=== PATIENT | female | born 1970 | race Caucasian/White ===

== ENCOUNTER 2016-10-31 16:25 | Emergency (ER) | payer OTHER ==
[2016-10-31 17:14] VITALS: BP 137/76
[2016-10-31 18:04] LABS: Hematocrit 39 % (35-47); Hemoglobin 13.3 g/dl (12.0-16.0); Mean Corpuscular HGB Conc 34 g/dl (31-36); Mean Corpuscular Hemoglobin 29 pg (27-31); Mean Corpuscular Volume 86 fL (80-97); Mean Platelet Volume 9 um3 (7.4-10.4); Red Blood Count 4.56 10^6/ul (4.0-5.4); Red Cell Distribution Width 14 % (10.5-15)
[2016-10-31 18:20] LABS: BUN/Creatinine Ratio 18.8 (8-20); Calcium 9.6 mg/dL (8.6-10.3); EGFR African American 92.6 (>60); Globulin 2.9 g/dL (2-4); Potassium 3.9 mmol/L (3.5-5.0); Total Bilirubin 0.6 mg/dL (0.2-1.0); Total Protein 6.9 g/dL (6.4-8.9)
--- NOTE | 2016-10-31 18:35 | RAD ---
Indication: Chest pain. History of asthma and bronchitis. Comparison: July 12, 2015 CT. July 12, 2015 chest radiograph. Technique: Upright AP 1800 hours Report: Mildly elevated lung volumes. Mild prominence of interstitial markings without significant change. No alveolar consolidation, focal pulmonary lesion, pleural effusion, pneumothorax. The heart, pulmonary vasculature, and mediastinal contours are unremarkable. IMPRESSION: Stigmata of probable chronic obstructive pulmonary disease. No acute cardiopulmonary process evident.
--- NOTE | 2016-11-08 13:21 | ED ---
Melody Thornton Anna, scribed for Antwon Mills MD on 10/31/16 at 1749 . HPI Chest Pain - HPI Summary HPI Summary: Patient is a 46 y/o female presenting with left-sided chest pain that began at 15:00 this evening while she was sitting at her computer. The pain does not radiate. She additionally reports SOB, lightheadedness, and left shoulder pain. She denies chills, nausea, vomiting. She has had similar symptoms before. - History of Current Complaint Chief Complaint: EDChestPainROMI Time Seen by Provider: 10/31/16 17:43 Hx Obtained From: Patient Onset/Duration: Started Hours Ago Initial Severity: Moderate Current Severity: Moderate - Allergy/Home Medications Allergies/Adverse Reactions: Allergies Allergy/AdvReac Type Severity Reaction Status Date / Time Adhesive Tape Allergy RED Verified 07/06/16 09:06 Latex Allergy SWELLS, Verified 07/06/16 09:06 RED ITCHY SKIN Atorvastatin [From Lipitor] AdvReac Intermediate GI Upset Verified 07/06/16 09: 06 Sulfamethoxazole AdvReac Intermediate GI Upset Verified 07/06/16 09:06 w/Trimethoprim [From Bactrim] Clarithromycin [From Biaxin] AdvReac GI Upset Verified 07/06/16 09:06 Escitalopram [From Lexapro] AdvReac GI Upset Verified 07/06/16 09:06 HAYFEVER/ENVIRONMENTAL Allergy SNEEZING, Uncoded 07/06/16 09:06 RUNNY NOSE PMH/Surg Hx/FS Hx/Imm Hx Endocrine/Hematology History: Denies: Hx Diabetes Cardiovascular History: Reports: Hx Angina, Hx Hypertension - ON MEDICATION FOR Denies: Hx Pacemaker/ICD, Other Cardiovascular Problems/Disorders Respiratory History: Reports: Hx Asthma - ROUTINE AND PRN MEDICATION FOR Denies: Hx Pulmonary Embolism GI History: Reports: Hx Gastroesophageal Reflux Disease - NO MEDICATION FOR- NO PROBLEMS WITH CURRENTLY Denies: Other GI Disorders History: Denies: Hx Dialysis, Hx Renal Disease, Other Problems/Disorders Musculoskeletal History: Reports: Hx Bursitis - RIGHT SHOULDER, Hx Tendonitis - RIGHT ELBOW, Other Musculoskeletal History - RIGHT ANKLE SEVERE STRAIN WITH TORN LIGAMENT Sensory History: Reports: Hx Contacts or Glasses - GLASSES Denies: Hx Hearing Aid Opthamlomology History: Reports: Hx Contacts or Glasses - GLASSES Neurological History: Reports: Hx Headaches, Hx Migraine - PRN MEDICATION FOR Denies: Other Neuro Impairments/Disorders Psychiatric History: Reports: Hx Depression - ON MEDICATION FOR Denies: Hx Panic Disorder - Surgical History Surgery Procedure, Year, and Place: 1994 TUBAL LIGATION;GALLBLADDER 02/2013; [facility] right ankle Jun 2013 Hx Anesthesia Reactions: No - Immunization History Date of Tetanus Vaccine: unknown Infectious Disease History: No Infectious Disease History: Denies: History Other Infectious Disease, Traveled Outside the [place] in Last 30 Days - Family History Known Family History: Positive: Cardiac Disease, Hypertension, Diabetes, Other - HLD, depression - Social History Alcohol Use: Rare Substance Use Type: Reports: None Smoking Status (MU): Current Some Day Smoker Type: Cigarettes Amount Used/How Often: OFF AND ON SINCE AGE 9 Length of Time of Smoking/Using Tobacco: 25 YEARS Have You Smoked in the Last Year: Yes Review of Systems Positive: Chest Pain Positive: Shortness Of Breath Positive: Arthralgia Neurological: Other - lightheadedness All Other Systems Reviewed And Are Negative: Yes Physical Exam - Summary Physical Exam Summary: VITAL SIGNS: Reviewed. GENERAL: Patient is an obese female who is lying comfortable in the stretcher. Patient is not in any acute respiratory distress. HEAD AND FACE: No signs of trauma. No ecchymosis, hematomas or skull depressions. No sinus tenderness. EYES: PERRLA, EOMI x 2, No injected conjunctiva, no nystagmus. EARS: Hearing grossly intact. Ear canals and tympanic membranes are within normal limits. MOUTH: Oropharynx within normal limits. NECK: Supple, trachea is midline, no adenopathy, no JVD, no carotid bruit, no c- spine tenderness, neck with full ROM. CHEST: Symmetric, Positive reproduction of tenderness at palpation LUNGS: Clear to auscultation bilaterally. No wheezing or crackles. CVS: Regular rate and rhythm, S1 and S2 present, no murmurs or gallops appreciated. ABDOMEN: Soft, non-tender. No signs of distention. No rebound no guarding, and no masses palpated. Bowel sounds are normal. EXTREMITIES: FROM in all major joints, no edema, no cyanosis or clubbing. NEURO: Alert and oriented x 3. No acute neurological deficits. Speech is normal and follows commands. SKIN: Dry and warm Vital Signs On Initial Exam: Initial Vitals Temp Pulse Resp BP Pulse Ox 98.4 F 88 16 137/76 96 10/31/16 17:04 10/31/16 17:04 10/31/16 17:04 10/31/16 17:04 10/31/16 17:04 - Laurent Coma Scale Coma Scale Total: 15 Diagnostics - Vital Signs Vital Signs Temp Pulse Resp BP Pulse Ox 10/31/16 17:35 93 14 98 10/31/16 17:04 98.4 F 88 16 137/76 96 - Laboratory Lab Results: Lab Results 10/31/16 10/31/16 10/31/16 Range/Units 17:25 17:25 17:25 WBC 10.0 (3.5-10.8) 10^3/ul RBC 4.56 (4.0-5.4) 10^6/ul Hgb 13.3 (12.0-16.0) g/dl Hct 39 (35-47) % MCV 86 (80-97) fL MCH 29 (27-31) pg MCHC 34 (31-36) g/dl RDW 14 (10.5-15) % Plt Count 229 (150-450) 10^3/ul MPV 9 (7.4-10.4) um3 Neut % (Auto) 62.2 (38-83) % Lymph % (Auto) 27.3 (25-47) % [place] % (Auto) 6.6 (1-9) % Eos % (Auto) 2.8 (0-6) % Baso % (Auto) 1.1 (0-2) % Absolute Neuts (auto) 6.2 (1.5-7.7) 10^3/ul Absolute Lymphs (auto) 2.7 (1.0-4.8) 10^3/ul Absolute Monos (auto) 0.7 (0-0.8) 10^3/ul Absolute Eos (auto) 0.3 (0-0.6) 10^3/ul Absolute Basos (auto) 0.1 (0-0.2) 10^3/ul Absolute Nucleated RBC 0.01 10^3/ul Nucleated RBC % 0.1 Sodium 140 (133-145) mmol/L Potassium 3.9 (3.5-5.0) mmol/L Chloride 107 (101-111) mmol/L Carbon Dioxide 27 (22-32) mmol/L Anion Gap 6 (2-11) mmol/L BUN 16 (6-24) mg/dL Creatinine 0.85 (0.51-0.95) mg/dL Est GFR ( Amer) 92.6 (>60) Est GFR (Non-Af Amer) 72.0 (>60) BUN/Creatinine Ratio 18.8 (8-20) Glucose 106 H (70-100) mg/dL Lactic Acid 1.5 (0.5-2.0) mmol/L Calcium 9.6 (8.6-10.3) mg/dL Total Bilirubin 0.60 (0.2-1.0) mg/dL AST 20 (13-39) U/L ALT 25 (7-52) U/L Alkaline Phosphatase 67 (34-104) U/L CK-MB (CK-2) 3.0 (0.6-6.3) ng/mL Troponin I 0.00 (<0.04) ng/mL Total Protein 6.9 (6.4-8.9) g/dL Albumin 4.0 (3.2-5.2) g/dL Globulin 2.9 (2-4) g/dL Albumin/Globulin Ratio 1.4 (1-3) Result Diagrams: 10/31/16 17:25 10/31/16 17:25 Lab Statement: Any lab studies that have been ordered have been reviewed, and results considered in the medical decision making process. - Radiology CXR Xray Interpretation: No Acute Changes Radiology Interpretation Completed By: Radiologist - IMPRESSION: Stigmata of probable chronic obstructive pulmonary disease. No acute cardiopulmonary process evident. - EKG 18:49 Cardiac Rate: NL - 75 bpm EKG Rhythm: Sinus Rhythm EKG Interpretation: No S/T elevation Chest Pain Course/Dx - Course Assessment/Plan: Patient is a 46 y/o female presenting with left-sided chest pain that began at 15:00 this evening while she was sitting at her computer. The pain does not radiate. She additionally reports SOB, lightheadedness, and left shoulder pain. She denies chills, nausea, vomiting. She has had similar symptoms before. Test result wnl. Troponin is 0.00. EKG: NSR w/o MATEO. CXR impression with no acute cardiopulmonary disease. I have no suspicion for PE since patient denies any SOB, she is no hypoxic and she in not tachycardic. Patient reports that all symptoms have resolved. Because the patient has no significant comorbidities and no family history of cardiovascular disease the patient will be discharged home with follow up of PMD. I discussed all the findings and test results with the patient. Patient was instructed to return to the emergency room immediately if any of the symptoms return or worsens. Patient understands and agrees. Plan of care was discussed with the patient and patient understands and agrees. All questions were answered at patient satisfaction. There were no further complaints or concerns. PE before discharge : CVS: S1 and S2 present. No murmurs appreciated. Abdominal exam before discharge: Soft, non-tender. No signs of distention. No rebound no guarding, and no masses palpated. Bowel sounds are normal. Patient is alert and oriented x 3. Patient is hemodynamically stable. - Chest Pain Differential Diagnosis/HQI/PQRI: ACS, Angina, Chest Wall, GI Disease, Lower Respiratory Infection, Pulmonary Embolism - Diagnoses Provider Diagnoses: Atypical chest pain Discharge - Discharge Plan Condition: Stable Disposition: HOME Patient Education Materials: Chest Pain (ED) Referrals: Geovanna Alves MD [Primary Care Provider] - Additional Instructions: Follow up with primary care physician within 24 hours. Return to the emergency department for changing or worsening symptoms. The documentation as recorded by the Melody shen Anna accurately reflects the service I personally performed and the decisions made by me, Antwon Mills MD.
== END 2016-10-31 19:28 | disposition home or self-care (01) ==
LOC: ED 16:25
DX: R07.9 Chest pain, unspecified (principal); R06.02 Shortness of breath; R42 Dizziness and giddiness
CPT/HCPCS: 36415; 71010; 80053; 82553; 83605; 84484; 85025; 93005; 99283

== ENCOUNTER 2018-03-27 07:01 | Emergency (ER) | payer OTHER ==
[2018-03-27 07:18] VITALS: BP 137/85
--- NOTE | 2018-03-27 08:08 | UC ---
Amy Thornton Tenzin, scribed for Rafaela Roach MD on 03/27/18 at 0732 . General HPI - HPI Summary HPI Summary: Pt is a 47 years old female presenting to the complaining of sore throat that started since yesterday. Pt is also complaining of "white spots" on the back of throat and "stuff draining down the throat". Denies fever, chills, nausea, no ear or sinus pain. Her mother has sore throat currently.No aggravating and alleviating factors were noted. No anlagesia taken. She doesn' t smoke and drinks twice a year. LNMP few weeks ago. Pt does not take meds as prescribed for htn, dm pt's on no meds - History of Current Complaint Chief Complaint: UCGeneralIllness Stated Complaint: SORE THROAT Hx Obtained From: Patient Hx Last Menstrual Period: 03/14/18 Onset/Duration: Still Present Pain Intensity: 7 Associated Signs & Symptoms: Positive: Other - Sore throat. - Allergy/Home Medications Allergies/Adverse Reactions: Allergies Allergy/AdvReac Type Severity Reaction Status Date / Time Adhesive Tape Allergy RED Verified 03/27/18 07:09 latex Allergy Rash Verified 03/27/18 07:45 atorvastatin AdvReac GI Upset Verified 03/27/18 07:45 clarithromycin [From Biaxin] AdvReac GI Upset Verified 03/27/18 07:45 escitalopram [From Lexapro] AdvReac GI Upset Verified 03/27/18 07:45 sulfamethoxazole AdvReac GI Upset Verified 03/27/18 07:45 [From Bactrim] trimethoprim [From Bactrim] AdvReac GI Upset Verified 03/27/18 07:45 HAYFEVER/ENVIRONMENTAL Allergy SNEEZING, Uncoded 03/27/18 07:09 RUNNY NOSE PMH/Surg Hx/FS Hx/Imm Hx - Additional Past Medical History Additional PMH: NEGATIVE: NE, CVA Previously Healthy: Yes - Surgical History Surgical History: Yes Surgery Procedure, Year, and Place: 1994 TUBAL LIGATION;GALLBLADDER 02/2013; [facility] right ankle Jun 2013. L wrist 2015 - Family History Known Family History: Positive: Cardiac Disease, Hypertension, Diabetes, Other - HLD, depression - Social History Occupation: Unemployed Lives: With Family Alcohol Use: Rare Substance Use Type: None Smoking Status (MU): Former Smoker Type: Cigarettes Amount Used/How Often: OFF AND ON SINCE AGE 9 Length of Time of Smoking/Using Tobacco: 33 years Have You Smoked in the Last Year: Yes When Did the Patient Quit Smoking/Using Tobacco: 1 yr ago Review of Systems Constitutional: Negative Skin: Negative Eyes: Negative ENT: Sore Throat, Other - drainage in her throat. Respiratory: Negative Cardiovascular: Negative Gastrointestinal: Negative Genitourinary: Negative Motor: Negative Neurovascular: Negative Musculoskeletal: Negative Neurological: Negative Psychological: Negative All Other Systems Reviewed And Are Negative: Yes Physical Exam - Summary Physical Exam Summary: Vital Signs Reviewed: Yes A+Ox3, no distress Eyes: Conjunctiva Clear, LORENA. EOM intact and full ENT: Hearing grossly normal TM x 2 clear, mmoist, turbinates boggy + PND uvula midline, no exudate, mild erythema erythema Neck: Positive: Supple Respiratory: Positive: No respiratory distress, No accessory muscle use + CTA throughout no w/r Cardiovascular: RRR nl s1, s2 no m/r CBT <2 sec abd soft + BS nt/nd no guarding, no distension Musculoskeletal Exam: LAM x 4 without difficulty Strength Intact, ROM Intact Neurological: Positive: Alert, + sensation throughout Psychological: Positive: Normal Response To Family Skin: Positive: no rash, no ecchymosis Triage Information Reviewed: Yes Vital Signs: Initial Vital Signs Temp 98.4 F 03/27/18 07:13 Pulse 83 03/27/18 07:13 Resp 20 03/27/18 07:13 BP 137/85 03/27/18 07:13 Pulse Ox 98 03/27/18 07:13 Course/Dx - Course Course Of Treatment: pt with sore throat x 24 hours. + PND. strep neg. recommend decongestant, flonase. motrin.apap. secretion precaution. flonase. pcp f/u - Differential Dx - Multi-Symptom Provider Diagnoses: pharyngitis. post nasal drip Discharge - Sign-Out/Discharge Documenting (check all that apply): Discharge/Admit/Transfer - Discharge Plan Condition: Stable Disposition: HOME Prescriptions: Fluticasone NASAL SPRAY 50MCG* [Flonase NASAL SPRAY 50MCG*] 2 spray BOTH NARES DAILY #1 btl Patient Education Materials: Pharyngitis (ED), Postnasal Drip (DC) Referrals: Geovanna Alves MD [Primary Care Provider] - Additional Instructions: - Okay to alternate ibuprofen (Advil, Motrin) and Tylenol every 3 hours for pain. Take with food. Do NOT take for more than 4-5 days - Okay to gargle and spit every 4 hours as needed for pain - Use nasal spray as instructed - It is also recommended you take an allergy medication such as Claritin, Zyrtec , Sirena - Stay well hydrated - frequent sips of cold fluids will be soothing to your throat (popsicles, jello, ice cream, ice water). Avoid excess caffeine until your symptoms have resolved. - Do not share eating, drinking utensils. Throw out your toothbrush when your symptoms resolved -Throat infections are spread by oral secretions - do not share eating or drinking utensils until you symptoms are resolved. Clean items that may get your secretions such as cell phones, ipads, computer mouse, television remotes. Once you start to feel better, change your pillowcase and your toothbrush - Contact your doctor to arrange a follow-up appointment as needed - Billing Disposition and Condition Condition: STABLE Disposition: Home The documentation as recorded by the Amy shen Tenzin accurately reflects the service I personally performed and the decisions made by me, Rafaela Roach MD.
== END 2018-03-27 08:20 | disposition home or self-care (01) ==
LOC: UCEAST 07:01
DX: J02.9 Acute pharyngitis, unspecified (principal); R09.82 Postnasal drip; Z91.09 Other allergy status, other than to drugs and biological substances; Z91.040 Latex allergy status; Z88.8 Allergy status to other drugs, medicaments and biological substances; Z88.1 Allergy status to other antibiotic agents; Z88.2 Allergy status to sulfonamides; Z87.891 Personal history of nicotine dependence
CPT/HCPCS: 87651; 99212; G0463

== ENCOUNTER 2019-01-03 15:02 | Emergency (ER) | payer OTHER ==
[2019-01-03 15:12] VITALS: BP 154/85
--- NOTE | 2019-01-03 15:26 | UC ---
Shoulder Pain HPI - HPI Summary HPI Summary: C/O left shoulder pain since yesterday morning. Associated with some numbness in the left arm. - History of Current Complaint Chief Complaint: UCUpperExtremity Stated Complaint: L SHOULDER PAIN Time Seen by Provider: 01/03/19 15:17 Hx Obtained From: Patient Hx Last Menstrual Period: [id number] ?: No Onset/Duration: Sudden Onset, Lasting Days - 2, Still Present Severity Initially: Severe Severity Currently: Severe Location Of Pain: Is Discrete @ - left shoulder Pain Intensity: 9 Character: Sharp, Aching, Throbbing Aggravating Factor(s): Movement Alleviating Factor(s): Rest Associated Signs And Symptoms: Positive: Negative Related History: Dominant Hand Right - Allergies/Home Medications Allergies/Adverse Reactions: Allergies Allergy/AdvReac Type Severity Reaction Status Date / Time Adhesive Tape Allergy RED Verified 01/03/19 15:19 latex Allergy Rash Verified 01/03/19 15:19 atorvastatin AdvReac GI Upset Verified 01/03/19 15:19 clarithromycin [From Biaxin] AdvReac GI Upset Verified 01/03/19 15:19 escitalopram [From Lexapro] AdvReac GI Upset Verified 01/03/19 15:19 sulfamethoxazole AdvReac GI Upset Verified 01/03/19 15:19 [From Bactrim] trimethoprim [From Bactrim] AdvReac GI Upset Verified 01/03/19 15:19 HAYFEVER/ENVIRONMENTAL Allergy SNEEZING, Uncoded 01/03/19 15:19 RUNNY NOSE Home Medications: Home Medications Fenofibrate [Tricor 160 MG] 160 mg PO DAILY 01/03/19 [History Confirmed 01/03/19 ] Hydrochlorothiazide TAB* [Hydrodiuril TAB*] 12.5 mg PO DAILY 01/03/19 [History Confirmed 01/03/19] Meclizine TAB* [Antivert 12.5 TAB*] 25 mg PO TID PRN 01/03/19 [History Confirmed 01/03/19] raNITIdine HCl [Ranitidine HCl] 150 mg PO BID 01/03/19 [History Confirmed ] PMH/Surg Hx/FS Hx/Imm Hx Cardiovascular History: Hypertension Respiratory History: Asthma - Surgical History Surgical History: Yes Surgery Procedure, Year, and Place: 1994 TUBAL LIGATION;GALLBLADDER 02/2013; [facility] right ankle Jun 2013. L wrist 2015 - Family History Known Family History: Positive: Cardiac Disease, Hypertension, Diabetes, Other - HLD, depression - Social History Occupation: Disabled Lives: With Family Alcohol Use: Rare Substance Use Type: None Smoking Status (MU): Former Smoker Type: Cigarettes Amount Used/How Often: OFF AND ON SINCE AGE 9 Length of Time of Smoking/Using Tobacco: 33 years Have You Smoked in the Last Year: Yes When Did the Patient Quit Smoking/Using Tobacco: 1 yr ago Review of Systems All Other Systems Reviewed And Are Negative: Yes Skin: Positive: Rash - Psoriasis Musculoskeletal: Positive: Arthralgia - left shoulder Is Patient Immunocompromised?: No Physical Exam Triage Information Reviewed: Yes Appearance: Well-Appearing, Pain Distress, Obese Vital Signs: Initial Vital Signs Temp 97.8 F 01/03/19 15:06 Pulse 91 01/03/19 15:06 Resp 16 01/03/19 15:06 BP 154/85 01/03/19 15:06 Pulse Ox 98 01/03/19 15:06 Vital Signs Reviewed: Yes Eyes: Positive: Conjunctiva Clear Neck exam: Normal Respiratory Exam: Normal Cardiovascular Exam: Normal Musculoskeletal: Positive: Strength Intact, ROM Limited @ - left shoulder limited flexion, abduction and extension due to pain. Neurological Exam: Normal Psychological Exam: Normal Skin: Positive: Rashes - diffuse psoriasis. Procedures - Procedure Summary Procedure Summary: Injection left subacromial bursa: Consent and Time out done. Risks/ benefits/ alternatives. 7cc injected. 1cc kenalog 40, 3cc each 1%lido and 0.25% marcaine. after betadine prep. Patient tolerated the procedure well. Mild pain relief with some increased ROM. Shoulder Course/Dx - Differential Dx/Diagnosis Differential Diagnosis/HQI/PQRI: AC Separation, Bursitis, Dislocation, Tendonitis Provider Diagnosis: AC (acromioclavicular) arthritis, Bursitis of left shoulder Discharge - Sign-Out/Discharge Documenting (check all that apply): Patient Departure All imaging exams completed and their final reports reviewed: No Studies - Discharge Plan Condition: Stable Disposition: HOME Prescriptions: Naproxen [Naproxen 375 mg tab] 375 mg PO TID PRN #60 tablet.dr CANALES Reason: Pain Patient Education Materials: Shoulder Pain (ED), Cortisone (Injection) Referrals: Geovanna Alves MD [Primary Care Provider] - Madan Castañeda MD [Medical Doctor] - 3 Days (follow up regarding shoulder pain.) Additional Instructions: Please start PT this week - Billing Disposition and Condition Condition: STABLE Disposition: Home
[2019-01-03] MEDS ORDERED: Lidocaine 1% MPF* 2 ML VIAL INJ ONE (15:30)
[2019-01-03] MEDS ORDERED: Bupivacaine 0.5%* 50 ML VIAL INJ ONE (15:30)
[2019-01-03] MEDS ORDERED: Triamcinolone Acetonide* 40 MG/ML 1 ML VIAL INTRAARTIC ONE (15:30)
[2019-01-03] MEDS ORDERED: Lidocaine 1%* 5 ML VIAL ONE (15:34)
[2019-01-03] MEDS ORDERED: Bupivacaine 0.25% SDV PF* 10 ML VIAL INJ ONE (15:35)
== END 2019-01-03 16:05 | disposition home or self-care (01) ==
LOC: UCEAST 15:02
DX: M75.52 Bursitis of left shoulder (principal); M13.812 Other specified arthritis, left shoulder; L40.9 Psoriasis, unspecified; I10 Essential (primary) hypertension; Z87.891 Personal history of nicotine dependence
CPT/HCPCS: 20610; 99213; G0463; J3301; J3490

== ENCOUNTER 2019-07-07 15:40 | Emergency (ER) | payer OTHER ==
[2019-07-07] MEDS ORDERED: predniSONE TAB* 20 MG PO ONE (16:42)
[2019-07-07 16:48] VITALS: BP 160/82
--- NOTE | 2019-07-07 16:49 | UC ---
Respiratory Complaint HPI - HPI Summary HPI Summary: The patient is a 49-year-old female with a history of asthma who presents here with a 24-36 hour history of progressively worsening nasal congestion postnasal drip and cough and wheezing. She has not used her rescue inhaler. She denies any fever or chills. She has developed bilateral otalgia. The first day she had a severe sore throat. She denies any chest pain. She feels slightly dyspneic with exertion. - History of Current Complaint Chief Complaint: UCRespiratory Stated Complaint: COUGH, FEVER Time Seen by Provider: 07/07/19 16:20 Hx Obtained From: Patient Hx Last Menstrual Period: 2 days ago Onset/Duration: Gradual Onset, Lasting Days Timing: Constant Severity Initially: Mild Severity Currently: Moderate Pain Intensity: 6 Pain Scale Used: 0-10 Numeric Character: Cough: Nonproductive Aggravating Factors: Exertion, Deep Breaths, Recumbent Position Alleviating Factors: Nothing Associated Signs And Symptoms: Positive: Wheezing, Nasal Congestion, Sinus Discomfort Related History: Similar Episode/Dx as: - bronchitis - Allergies/Home Medications Allergies/Adverse Reactions: Allergies Allergy/AdvReac Type Severity Reaction Status Date / Time Adhesive Tape Allergy RED Verified 07/07/19 15:59 latex Allergy Rash Verified 07/07/19 15:59 atorvastatin AdvReac GI Upset Verified 07/07/19 15:59 clarithromycin [From Biaxin] AdvReac GI Upset Verified 07/07/19 15:59 escitalopram [From Lexapro] AdvReac GI Upset Verified 07/07/19 15:59 sulfamethoxazole AdvReac GI Upset Verified 07/07/19 15:59 [From Bactrim] trimethoprim [From Bactrim] AdvReac GI Upset Verified 07/07/19 15:59 HAYFEVER/ENVIRONMENTAL Allergy SNEEZING, Uncoded 07/07/19 15:59 RUNNY NOSE PMH/Surg Hx/FS Hx/Imm Hx Endocrine History: Dyslipidemia Cardiovascular History: Hypertension Respiratory History: Asthma, Bronchitis - Surgical History Surgical History: Yes Surgery Procedure, Year, and Place: 1994 TUBAL LIGATION;GALLBLADDER 02/2013; [facility] right ankle Jun 2013. L wrist 2015 - Family History Known Family History: Positive: Cardiac Disease, Hypertension, Diabetes, Other - HLD, depression - Social History Alcohol Use: Rare Substance Use Type: None Smoking Status (MU): Former Smoker Type: Cigarettes Amount Used/How Often: OFF AND ON SINCE AGE 9 Length of Time of Smoking/Using Tobacco: 33 years Have You Smoked in the Last Year: Yes When Did the Patient Quit Smoking/Using Tobacco: 1 yr ago Review of Systems All Other Systems Reviewed And Are Negative: Yes Constitutional: Positive: Fatigue Skin: Positive: Rash - psoriasis Eyes: Positive: Negative ENT: Positive: Sore Throat, Ear Ache, Nasal Discharge, Sinus Congestion, Sinus Pain/Tenderness Respiratory: Positive: Cough, Other - wheezing Cardiovascular: Positive: Negative Gastrointestinal: Positive: Negative Genitourinary: Positive: Negative Motor: Positive: Negative Neurovascular: Positive: Negative Musculoskeletal: Positive: Negative Neurological: Positive: Negative Psychological: Positive: Negative Physical Exam Triage Information Reviewed: Yes Appearance: Well-Appearing, No Pain Distress, Well-Nourished Vital Signs: Initial Vital Signs Temp 98.6 F 07/07/19 16:00 Pulse 106 07/07/19 16:00 Resp 20 07/07/19 16:00 Pulse Ox 95 07/07/19 16:00 Vital Signs Reviewed: Yes Eyes: Positive: Conjunctiva Clear ENT: Positive: Hearing grossly normal, Pharynx normal, Pharyngeal erythema, Nasal congestion, Nasal drainage, TM bulging, TM dull, TM red - R/L, Tonsillar swelling, Sinus tenderness, Uvula midline Neck: Positive: Supple, Nontender, No Lymphadenopathy Respiratory: Positive: No respiratory distress, No accessory muscle use, Wheezing Cardiovascular: Positive: RRR, No Murmur Musculoskeletal: Positive: ROM Intact, No Edema Neurological: Positive: Alert Psychological Exam: Normal Skin Exam: Normal Respiratory Course/Dx - Differential Dx/Diagnosis Provider Diagnosis: Acute bronchitis with bronchospasm, Bilateral otitis media Discharge ED - Sign-Out/Discharge Documenting (check all that apply): Patient Departure All imaging exams completed and their final reports reviewed: No Studies - Discharge Plan Condition: Stable Disposition: HOME Patient Education Materials: Acute Bronchitis (ED) Referrals: Geovanna Alves MD [Primary Care Provider] - 1 Week - Billing Disposition and Condition Condition: STABLE Disposition: Home
== END 2019-07-07 17:06 | disposition home or self-care (01) ==
LOC: UCEAST 15:40
DX: J20.9 Acute bronchitis, unspecified (principal); H66.93 Otitis media, unspecified, bilateral; E78.5 Hyperlipidemia, unspecified; I10 Essential (primary) hypertension; Z88.2 Allergy status to sulfonamides; Z87.891 Personal history of nicotine dependence; Z91.040 Latex allergy status
CPT/HCPCS: 87651; 99212; G0463; J7512

== ENCOUNTER 2019-08-07 09:52 | Emergency (ER) | payer OTHER ==
[2019-08-07 10:22] VITALS: BP 125/82
--- NOTE | 2019-08-07 10:39 | UC ---
Throat Pain/Nasal Young HPI - HPI Summary HPI Summary: 49-year-old female who has had cold symptoms for about a week. She has been treated for bronchitis and an ear infection a few weeks ago and thinks she got better from that however she states this week she started getting sick again. She's had sinus congestion and pressure and occasionally coughing up greenish sputum. She is a nonsmoker - History of Current Complaint Chief Complaint: UCRespiratory Stated Complaint: SORE THROAT Time Seen by Provider: 08/07/19 10:38 Hx Obtained From: Patient Hx Last Menstrual Period: 08/02/19 ?: No Onset/Duration: Gradual Onset Severity: Mild Pain Intensity: 9 Cough: Productive - Occasionally productive cough of greenish sputum. Associated Signs & Symptoms: Positive: Sinus Discomfort, Nasal Discharge - Allergies/Home Medications Allergies/Adverse Reactions: Allergies Allergy/AdvReac Type Severity Reaction Status Date / Time Adhesive Tape Allergy RED Verified 08/07/19 10:22 latex Allergy Rash Verified 08/07/19 10:22 atorvastatin AdvReac GI Upset Verified 08/07/19 10:22 clarithromycin [From Biaxin] AdvReac GI Upset Verified 08/07/19 10:22 escitalopram [From Lexapro] AdvReac GI Upset Verified 08/07/19 10:22 sulfamethoxazole AdvReac GI Upset Verified 08/07/19 10:22 [From Bactrim] trimethoprim [From Bactrim] AdvReac GI Upset Verified 08/07/19 10:22 HAYFEVER/ENVIRONMENTAL Allergy SNEEZING, Uncoded 08/07/19 10:22 RUNNY NOSE PMH/Surg Hx/FS Hx/Imm Hx Previously Healthy: Yes Cardiovascular History: Hypertension GI/ History: Gastroesophageal Reflux - Surgical History Surgical History: Yes Surgery Procedure, Year, and Place: 1993 TUBAL LIGATION;GALLBLADDER 02/2013; [facility] right ankle Jun 2013. L wrist 2015 - Family History Known Family History: Positive: Cardiac Disease, Hypertension, Diabetes, Other - HLD, depression - Social History Occupation: Disabled Alcohol Use: Rare Substance Use Type: Prescribed Smoking Status (MU): Former Smoker Type: Cigarettes Amount Used/How Often: OFF AND ON SINCE AGE 9 Length of Time of Smoking/Using Tobacco: 33 years Have You Smoked in the Last Year: Yes When Did the Patient Quit Smoking/Using Tobacco: 1 yr ago Household Exposure Type: Cigarettes Review of Systems All Other Systems Reviewed And Are Negative: Yes ENT: Positive: Sore Throat, Ear Ache, Nasal Discharge, Sinus Congestion, Sinus Pain/Tenderness Respiratory: Positive: Cough - Case a productive cough of greenish sputum. Is Patient Immunocompromised?: No Physical Exam Triage Information Reviewed: Yes Appearance: Well-Appearing, No Pain Distress, Well-Nourished Vital Signs: Initial Vital Signs Temp 97.6 F 08/07/19 10:17 Pulse 94 08/07/19 10:17 Resp 20 08/07/19 10:17 BP 125/82 08/07/19 10:17 Pulse Ox 97 08/07/19 10:17 Vital Signs Reviewed: Yes Eyes: Positive: Conjunctiva Clear ENT: Positive: Hearing grossly normal, Pharynx normal, Nasal congestion - Yellowish thick nasal coryza right nostril., Nasal drainage, TMs normal, Uvula midline Neck: Positive: Supple, Nontender, No Lymphadenopathy Respiratory: Positive: Lungs clear, Normal breath sounds, No respiratory distress, No accessory muscle use Cardiovascular: Positive: RRR, No Murmur, Pulses Normal, Brisk Capillary Refill Musculoskeletal Exam: Normal Neurological Exam: Normal Psychological Exam: Normal Skin Exam: Normal Throat Pain/Nasal Course/Dx - Course Course Of Treatment: Patient is comfortable here. I'm going to treat her for her sinus infection with doxycycline 100 mg by mouth twice a day 10 days. She is to follow-up with primary care provider on Saturday if no improvement. - Differential Dx/Diagnosis Provider Diagnosis: Sinusitis Discharge ED - Sign-Out/Discharge Documenting (check all that apply): Patient Departure All imaging exams completed and their final reports reviewed: No Studies - Discharge Plan Condition: Good Disposition: HOME Prescriptions: DOXYcycline CAP(*) [DOXYcycline 100MG CAP(*)] 100 mg PO BID 10 Days #20 cap Patient Education Materials: Sinusitis (ED) Referrals: Geovanna Avles MD [Primary Care Provider] - Additional Instructions: Increase fluids. No dairy products, antacids or multivitamins or vitamin supplements 2 hours before you take the doxycycline and 2 hours after however you want to take it with food. Definite follow-up with your primary care provider on Saturday or Saturday if no improvement. - Billing Disposition and Condition Condition: GOOD Disposition: Home
== END 2019-08-07 10:49 | disposition home or self-care (01) ==
LOC: UCEAST 09:52
DX: J32.9 Chronic sinusitis, unspecified (principal); I10 Essential (primary) hypertension; J02.9 Acute pharyngitis, unspecified; Z91.09 Other allergy status, other than to drugs and biological substances; Z91.040 Latex allergy status; Z88.8 Allergy status to other drugs, medicaments and biological substances; Z88.1 Allergy status to other antibiotic agents; Z88.2 Allergy status to sulfonamides; Z87.891 Personal history of nicotine dependence
CPT/HCPCS: 99212; G0463

== ENCOUNTER 2019-08-24 07:11 | Emergency (ER) | payer OTHER ==
--- OUTSIDE RECORDS SUMMARY | 2019-08-24 07:16 | XMS REPORT | Continuity of Care Document ---
:1970 External Reference #:[id number] Author Name Geovanna Alves M.D. (transmitted by agent of provider Marissa Cardona) Address [address], [place] [address] Care Team Providers Name Role Phone Geovanna Alves MD - Internal Care Team Information Summer Intern Medicine Problems Active Problems Provider Date Mixed hyperlipidemia Geovanna Alves M.D. Onset: 01/07/2013 Intrinsic asthma without status Geovanna Alves M.D. Onset: 01/07/2013 asthmaticus Benign essential hypertension Geovanna Alves M.D. Onset: 01/07/2013 Tobacco user Geovanna Alves M.D. Onset: 01/07/2013 Ruptured Tendon Nontraumatic Other Geovanna Alves M.D. Onset: 01/07/2013 Chest pain Davina Truong M.D. Onset: 02/02/2013 Dyspnea Davina Truong M.D. Onset: 02/02/2013 Electrocardiogram abnormal [facility] Schedule Onset: 03/12/2013 Release for de Quervain's tenosynovitis Onset: of hand Tibialis tendinitis Onset: Gastroesophageal reflux disease Geovanna Alves M.D. Onset: 06/17/2018 Social History Type Date Description Comments Sex Unknown Tobacco Use Start: Unknown current cigarette 25 pk yr, 10 cig smoker per day since summer 2014 is doing 5 cig daily ETOH Use Drinks Alcoholic Beverages Rarely Recreational Drug Use Denies Drug Use Tobacco Use Start: Unknown End: Patient is a former Unknown smoker Smoking Status Reviewed: 08/11/19 Patient is a former smoker Exercise Type/Frequency Does not exercise Allergies, Adverse Reactions, Alerts Active Allergies Reaction Severity Comments Date Biaxin GI 01/06/2013 Bactrim GI 01/06/2013 Lipitor GI problems 02/02/2013 Lexapro GI problems 02/02/2013 Latex 08/31/2013 Statins 05/16/2018 Medications Active Medications SIG Qnty Indications Ordering Date Provider Prednisone 2 tab by mouth QS J45.41 Geovanna 08/11/2019 20mg Tablets every day x3 [place] days then 1 tab daily for 3 days, then 1/2 tab daily for 3 days Flonase Allergy Relief spray 1 spray 16units J01.90 Geovanna 08/11/2019 50mcg/Act in each nostril [place] Suspension daily Ventolin HFA inhale 2 puffs 18units Geovanna 05/07/2019 108(90Base) mcg/Act by mouth four [place] Aerosol times a day as needed [place]-3 CF once a day 90caps [facility] 04/27/2019 1000mg Capsules [place] Ezetimibe 1 by mouth 90tabs E78.2 Geovanna 04/27/2019 10mg Tablets every day [place] Airduo Respiclick 232/14 1 inh every 12 3units [facility] 07/18/2018 hrs ( dispense [place] 232-14mcg/Act Aerosol generic ) Ranitidine HCL Take 1 Tablet 60tabs K21.9 Geovanna 06/17/2018 150mg Tablets By Mouth Twice [place] [facility] Daily Fenofibrate 1 by mouth 90tabs Geovanna 06/03/2018 160mg Tablets every day [facility] Hydrochlorothiazide Take 1 Capsule 90caps I10 Geovanna 04/30/2018 12.5mg By Mouth Once [place] Capsules Daily Meclizine HCL 1 tablet every 30tabs H81.10 Viktoria Mckenna, 04/14/2018 25mg Tablets 8 hours as N.P. needed for vertigo Sirena Allergy 1 by mouth 90tabs J30.9 Geovanna 06/27/2017 180mg Tablets every day [facility] Celexa 1 by mouth 90tabs F32.9 Geovanna 08/31/2013 10mg Tablets every day [facility] Sumatriptan Succinate Take One Tablet 9tabs G43.809 [facility] 06/23/2013 50mg AT Onset Of [place] Tablets Headache, May Repeat Again In 2 Hours Not To Exceed 2 Tablets Per Day Lisinopril Take 1 Tablet 90tabs I10 [facility] 01/06/2013 5mg Tablets By Mouth Once [place] Daily Mometasone Furoate as needed X 7 30gm Geovanna 0.1% Cream days [place] Doxycycline Monohydrate Take 1 Capsule Unknown 100mg By Mouth Twice Capsules Daily History Medications Proair HFA take 1 to 2 8.5units [facility] Joselyn, 04/15/2019 - 108(90Base) puffs 4-6 times M.D. 05/07/2019 mcg/Act Aerosol a day as needed for cough Medications Administered in Office Medication SIG Qnty Indications Ordering Provider Date Depomedrol 40MG Denisse Us M.D. 01/30/2016 Injection Depomedrol 80MG Madan Castañeda M.D. 12/04/2012 Injection Depomedrol 80MG Madan Castañeda M.D. 12/04/2012 Injection Immunizations CPT Code Status Date Vaccine Lot # [id number] Given 06/27/2017 Tdap - Tetanus/Diptheria/Acellular Pertussis [id number] 90810 Given 06/27/2017 Influenza Virus Vaccine, Quadrivalent, Split, [id number] Preservative Free 74761 Given 09/06/2015 Influenza Virus Vaccine, Quadrivalent, Split, [id number] Preservative Free [id number] Given 06/22/2015 Pneumonia Vaccine [id number] 78928 Given 09/01/2014 Pneumococcal Conjugate Vaccine 13 Valent For [id number] Intramuscular Use 05552 Given 09/01/2014 Flu Vaccine Split Virus Preservative Free For [id number] Indiv 3Yr Older Vital Signs Date Vital Result Comment 08/11/2019 8:15am Height 71. inches 5'11" Weight 310.00 lb Heart Rate 89 /min BP Systolic Sitting 133 mmHg BP Diastolic Sitting 90 mmHg Body Temperature 97.9 F O2 % BldC Oximetry 97 % BMI (Body Mass Index) 43.2 kg/m2 04/27/2019 10:01am Height 70.75 inches 5'10.75" Weight 327.38 lb Heart Rate 81 /min BP Systolic Sitting 132 mmHg Rue lg cuff BP Diastolic Sitting 87 mmHg Rue lg cuff O2 % BldC Oximetry 91 % BMI (Body Mass Index) 46.0 kg/m2 Results Test Date Facility Test Result H/L Range Note Laboratory test 07/07/2019 [facility] Rapid Strep Negative Negative [address] [place] [address] [phone] Laboratory test 04/27/2019 [facility] Hemoglobin A1c 5.5 % Normal 4.0-5.[address] (Glyco HGB) [place] [address] [phone] Glucose 101 mg/dL High 70-100 Lipid Profile 04/20/2019 [facility] Triglycerides 270 mg/dL 3 (Trig/Chol/HDL) [address] [place] [address] [phone] Cholesterol 250 mg/dL 4 HDL Cholesterol 37.5 mg/dL 5 LDL Cholesterol 159 mg/dL 6 Basic Metabolic 04/20/2019 [facility] Sodium 141 mmol/L Normal 135-[address] [place] [address] [phone] Potassium 4.1 mmol/L Normal 3.5-5.0 Chloride 111 mmol/L Normal 101-111 Co2 Carbon Dioxide 21 mmol/L Low 22-32 Anion Gap 9 mmol/L Normal 2-11 Glucose 109 mg/dL High 70-100 Blood Urea Nitrogen 12 mg/dL Normal 6-24 Creatinine 0.75 mg/dL Normal 0.51-0.95 BUN/Creatinine Ratio 16.0 Normal 8-20 Calcium 9.3 mg/dL Normal 8.6-10.3 Egfr Non- 82.5 >60 Egfr 99.8 >60 7 1 Soliciting Freight Agent: [id number] 2 Therapeutic target for the treatment of diabetes mellitus patients is <7% HBA1C, and in selective patients <6.0%. Please refer to [place] [employer] diabetic care guidelines for further information. 3 Desirable: <150 Borderline High: 150-199 High: 200-499 Very High: >500 4 Desirable: <200 Borderline High: 200-239 High: >239 5 Low: <40 Desirable: 40-60 High: >60 6 Desirable: <100 Near Optimal: 100-129 Borderline High: 130-159 High: 160-189 Very High: >189 7 Because ethnic data is not always readily available, this report includes an eGFR for both -Americans and non- Americans. The National Kidney Disease Education Program (NKDEP) does not endorse the use of the MDRD equation for patients that are not between the ages of 18 and 70, are , have extremes of body size, muscle mass, or nutritional status, or are non- or non-. According to the National Kidney Foundation, irrespective of diagnosis, the stage of the disease is based on the level of kidney function: Stage Description GFR(mL/min/1.73 m(2)) 1 Kidney damage with normal or decreased GFR 90 2 Kidney damage with mild decrease in GFR 60-89 3 Moderate decrease in GFR 30-59 4 Severe decrease in GFR 15-29 5 Kidney failure <15 (or dialysis) Procedures Description No Information Available Medical Devices Description No Information Available Encounters Type Date Location Provider Dx Diagnosis Office Visit 04/27/2019 [facility] Internal Geovanna Alves E78.2 Mixed hyperlipidemia 10:10a Medicine [facility] Golden I10 Essential (primary) hypertension R73.01 Impaired fasting glucose N92.1 Excessive and frequent menstruation with irregular cycle Assessments Date Code Description Provider 08/11/2019 J01.90 Acute sinusitis, unspecified Geovanna Alves M.D. 08/11/2019 J45.41 Moderate persistent asthma with (acute) Geovanna Alves M.D. exacerbation 08/11/2019 L40.9 Psoriasis, unspecified Geovanna Alves M.D. 04/27/2019 E78.2 Mixed hyperlipidemia Geovanna Alves M.D. 04/27/2019 I10 Essential (primary) hypertension Geovanna Alves M.D. 04/27/2019 R73.01 Impaired fasting glucose Geovanna Alves M.D. 04/27/2019 N92.1 Excessive and frequent menstruation with Geovanna Alves M.D. irregular cycle Plan of Treatment Future Appointment(s):08/18/2019 2:20 pm - Geovanna Alves M.D. at [facility] Internal Medicine [facility]08/11/2019 - Geovanna Alves M.D.J01.90 Acute sinusitis , unspecifiedNew Medication:Flonase Allergy Relief 50 mcg/Act - spray 1 spray in each nostril dailyComments:use nose spray daily, uses steamfinish antibiotic pokwokN65.41 Moderate persistent asthma with (acute) exacerbationNew Medication: Prednisone 20 mg - 2 tab by mouth every day x3 days then 1 tab daily for 3 days , then 1/2 tab daily for 3 daysL40.9 Psoriasis, unspecifiedReferral:Ethel Lawson MD, Dermatology Functional Status Description No Information Available Mental Status Description No Information Available Referrals Refer to Dr Reason for Referral Status Appt Date Ethel Lawson MD Created [address] [place] [address] [place] [address] [phone]
[2019-08-24 07:32] VITALS: BP 150/80
--- NOTE | 2019-08-24 07:48 | UC ---
Shortness of Breath HPI - HPI Summary HPI Summary: 49 yo woman with hypertension, asthma and past smoking history, with onset of right posterior chest pain associated with breathlessness last night. Repeated awakening with discomfort. Has pain with deep inspiration and with position change. No relief with use of albuterol or with the 5 TUMS which she took this morning. Hx of reflux. Admits that she is irregular in taking all of her medications due to stress and worry about a family member's illness. No recall of any injury, although she did sleep on the floor one night last week , about 3 days before onset of pain. - History of Current Complaint Chief Complaint: UCChestPain Stated Complaint: chest CONGESTION, AND NAUSEA Time Seen by Provider: 08/24/19 07:17 Hx Obtained From: Patient Hx Last Menstrual Period: last month Onset/Duration: Sudden Onset, Lasting Hours Timing: Intermittent Episodes Lasting: Current Severity: Moderate Dyspnea At: Rest, Exertion Aggravating Factors: Movement, Deep Breaths Alleviating Factors: Upright Position Associated Signs & Symptoms: Negative: Wheezing - Allergy/Home Medications Allergies/Adverse Reactions: Allergies Allergy/AdvReac Type Severity Reaction Status Date / Time Adhesive Tape Allergy RED Verified 08/24/19 07:22 latex Allergy Rash Verified 08/24/19 07:22 atorvastatin AdvReac GI Upset Verified 08/24/19 07:22 clarithromycin [From Biaxin] AdvReac GI Upset Verified 08/24/19 07:22 escitalopram [From Lexapro] AdvReac GI Upset Verified 08/24/19 07:22 sulfamethoxazole AdvReac GI Upset Verified 08/24/19 07:22 [From Bactrim] trimethoprim [From Bactrim] AdvReac GI Upset Verified 08/24/19 07:22 HAYFEVER/ENVIRONMENTAL Allergy SNEEZING, Uncoded 08/24/19 07:22 RUNNY NOSE Home Medications: Home Medications Calcium Carbonate [Tums] 5 tab PO ONCE PRN 08/24/19 [History Confirmed 08/24/19] Ezetimibe 1 tab PO DAILY 08/24/19 [History Confirmed 08/24/19] Fluticasone/Salmeterol [Airduo Respiclick 232-14 Mcg] 1 inh INH DAILY 08/24/19 [ History Confirmed 08/24/19] PMH/Surg Hx/FS Hx/Imm Hx Endocrine History: Dyslipidemia Cardiovascular History: Hypertension, Other - elevated cholesterol Respiratory History: Asthma GI/ History: Gastroesophageal Reflux - Surgical History Surgical History: Yes Surgery Procedure, Year, and Place: 1994 TUBAL LIGATION;GALLBLADDER 02/2013; [facility] right ankle Jun 2013. L wrist 2015 - Family History Known Family History: Positive: Cardiac Disease, Hypertension, Diabetes, Other - HLD, depression - Social History Occupation: Disabled Lives: With Family Alcohol Use: Rare Substance Use Type: Prescribed Smoking Status (MU): Former Smoker Type: Cigarettes Amount Used/How Often: OFF AND ON SINCE AGE 9 Length of Time of Smoking/Using Tobacco: 33 years Have You Smoked in the Last Year: Yes When Did the Patient Quit Smoking/Using Tobacco: 1 yr ago Household Exposure Type: Cigarettes Review of Systems All Other Systems Reviewed And Are Negative: Yes Constitutional: Positive: Fatigue Skin: Positive: Negative Eyes: Positive: Negative ENT: Positive: Negative Respiratory: Positive: Shortness Of Breath Cardiovascular: Positive: Chest Pain. Negative: Palpitations Gastrointestinal: Positive: Nausea Genitourinary: Positive: Negative Motor: Positive: Negative Neurovascular: Positive: Negative Physical Exam Triage Information Reviewed: Yes Appearance: Pain Distress - uncomfortable with movement and changes in position. , Obese Vital Signs: Initial Vital Signs Temp 97.3 F 08/24/19 07:15 Pulse 75 08/24/19 07:15 Resp 20 08/24/19 07:15 BP 150/80 08/24/19 07:15 Pulse Ox 97 08/24/19 07:15 Eyes: Positive: Conjunctiva Clear ENT: Positive: Pharynx normal, TMs normal Neck: Positive: Supple, Nontender, No Lymphadenopathy Respiratory Exam: Other - Tenderness to palpation in the subscapular area, reproduces pain. Respiratory: Positive: Lungs clear, Normal breath sounds Cardiovascular: Positive: RRR, No Murmur Abdomen Description: Positive: Nontender, CVA Tenderness (R). Negative: CVA Tenderness (L) Musculoskeletal Exam: Other - diffuse tenderness to palpation posterior chest wall, low in rib cage. Musculoskeletal: Positive: ROM Intact - Large body Neurological Exam: Normal Psychological Exam: Normal Skin Exam: Normal Diagnostics - Laboratory Lab Results: UA negative. - Radiology No standard instances Radiology Interpretation Completed By: Radiologist - Per Dr. Arambula: No acute cardiopulmonary disease. - EKG Cardiac Rate: NL Cardiac Rhythm: Sinus: Normal Ectopy: None ST Segment: Normal Shortness of Breath Dx - Course Course Of Treatment: analgesics and muscle relaxants, heat and rest. Clinically no evidence of pulmonary embolus. EKG is normal (compared to past EKG--had bundle branch block in 2017). - Differential Dx/Diagnosis Differential Diagnosis/HQI/PQRI: Chest Wall Pain, Pneumonia, Other - Reflux Provider Diagnosis: Chest wall pain Discharge ED - Sign-Out/Discharge Documenting (check all that apply): Patient Departure All imaging exams completed and their final reports reviewed: Yes - Discharge Plan Condition: Stable Disposition: HOME Prescriptions: Cyclobenzaprine TAB* [Flexeril 10 MG TAB*] 10 mg PO BID PRN #14 tab PRN Reason: Spasms - Back Patient Education Materials: Chest Wall Pain (ED) Referrals: Geovanna Alves MD [Primary Care Provider] - Additional Instructions: use acetaminophen 650mg up to 4 times per day to control pain. You have been prescribed a muscle relaxant; I suggest that you rest at home, use heat on the back, and use a muscle relaxant to sleep. Anticipate that the pain might last for several days, but should gradually decrease unless you overuse the muscles. - Billing Disposition and Condition Condition: STABLE Disposition: Home
[2019-08-24] MEDS ORDERED: Ketorolac *IM* INJ* 60 MG/2 ML VIAL IM ONE (07:55)
== END 2019-08-24 09:20 | disposition home or self-care (01) ==
LOC: UCEAST 07:11
DX: R07.89 Other chest pain (principal); E78.5 Hyperlipidemia, unspecified; I10 Essential (primary) hypertension; E78.00 Pure hypercholesterolemia, unspecified; J45.909 Unspecified asthma, uncomplicated; Z88.1 Allergy status to other antibiotic agents; Z88.8 Allergy status to other drugs, medicaments and biological substances; Z91.040 Latex allergy status; Z91.09 Other allergy status, other than to drugs and biological substances; Z88.2 Allergy status to sulfonamides; Z79.899 Other long term (current) drug therapy; Z87.891 Personal history of nicotine dependence
CPT/HCPCS: 71046; 81003; 96372; 99212; G0463; J1885

== ENCOUNTER 2019-09-04 17:38 | Emergency (ER) | payer OTHER ==
--- OUTSIDE RECORDS SUMMARY | 2019-09-04 17:45 | XMS REPORT | Continuity of Care Document ---
:1970 External Reference #:[id number] Author Name Geovanna Alves M.D. (transmitted by agent of provider Marissa Cardona) Address [address] [facility], [place] [address] Care Team Providers Name Role Phone Geovanna Alves MD - Internal Care Team Information Pier Master [phone] Medicine Problems Active Problems Provider Date Mixed [...] reflux disease Geovanna Alves M.D. Onset: 06/17/2018 Psoriasis Geovanna Alves M.D. Onset: 08/11/2019 Social History Type Date Description Comments Sex Unknown Tobacco Use Start: Unknown current cigarette 25 pk yr, 10 cig smoker per day since summer 2014 is doing 5 cig daily ETOH Use Drinks Alcoholic Beverages Rarely Recreational Drug Use Denies Drug Use Tobacco Use Start: Unknown End: Patient is a former Unknown smoker Smoking Status Reviewed: 09/01/19 Patient is a former smoker Exercise Type/Frequency Does not exercise Allergies, Adverse Reactions, Alerts Active Allergies Reaction Severity Comments Date Biaxin GI 01/06/2013 Bactrim GI 01/06/2013 Lipitor GI problems 02/02/2013 Lexapro GI problems 02/02/2013 Latex 08/31/2013 Statins 05/16/2018 Medications Active Medications SIG Qnty Indications Ordering Date Provider Crestor once a day 90tabs E78.2 Geovanna 09/01/2019 20mg Tablets Golden Alves Cyclobenzaprine HCL 1 by mouth 14tabs S23.41xA Geovanna 09/01/2019 10mg Tablets twice times a Golden Alves day Flonase Allergy Relief spray 1 spray 16units J01.90 Geovanna 08/11/2019 50mcg/Act in each nostril Golden Alves Suspension daily Ventolin HFA inhale 2 puffs 18units Geovanna 05/07/2019 108(90Base) mcg/Act by mouth four Golden Alves Aerosol times a day as needed [place]-3 CF once a day 90caps Geovanna 04/27/2019 1000mg Capsules Golden Alves Ezetimibe 1 by mouth 90tabs E78.2 Geovanna 04/27/2019 10mg Tablets every day Golden Alves Airduo Respiclick 232/14 1 inh every 12 3units [facility] 07/18/2018 hrs ( dispense Golden Alves 232-14mcg/Act Aerosol generic ) Ranitidine HCL Take 1 Tablet 60tabs K21.9 Geovanna 06/17/2018 150mg Tablets By Mouth Twice Golden Alves Daily Fenofibrate 1 by mouth 90tabs Geovanna 06/03/2018 160mg Tablets every day Golden Alves Hydrochlorothiazide Take 1 Capsule 90caps I10 Geovanna 04/30/2018 12.5mg By Mouth Once Golden Alves Capsules Daily Meclizine HCL 1 tablet every 30tabs H81.10 Viktoria Mckenna, 04/14/2018 25mg Tablets 8 hours as N.P. needed for vertigo Sirena Allergy 1 by mouth 90tabs J30.9 Geovanna 06/27/2017 180mg Tablets every day Golden Alves Celexa 1 by mouth 90tabs F32.9 [facility] 08/31/2013 10mg Tablets every day Golden Alves Sumatriptan Succinate Take One Tablet 9tabs G43.809 [facility] 06/23/2013 50mg AT Onset Of Golden Alves Tablets Headache, May Repeat Again In 2 Hours Not To Exceed 2 Tablets Per Day Lisinopril Take 1 Tablet 90tabs I10 [facility] 01/06/2013 5mg Tablets By Mouth Once Golden Alves Daily Mometasone Furoate as needed X 7 30gm [facility] 0.1% Cream days Golden Alves History Medications Prednisone 2 tab by mouth QS J45.41 [facility] Joselyn, 08/11/2019 - 20mg every day x3 M.D. 08/20/2019 Tablets days then 1 tab daily for 3 days, then 1/2 tab daily for 3 days Proair HFA take 1 to 2 8.5units [facility] Joselyn, 04/15/2019 - puffs 4-6 times M.D. 05/07/2019 108(90Base) mcg/Act a day as needed Aerosol for cough Medications Administered in Office Medication SIG Qnty Indications Ordering Provider Date Depomedrol 40MG Denisse Us M.D. 01/30/2016 Injection Depomedrol 80MG Madan Castañeda M.D. 12/04/2012 Injection Depomedrol 80MG Madan Castañeda M.D. 12/04/2012 Injection Immunizations CPT Code Status Date Vaccine Lot # [id number] Given 06/27/2017 Tdap - Tetanus/Diptheria/Acellular Pertussis [id number] Given 06/27/2017 Influenza Virus Vaccine, Quadrivalent, Split, [id number] Preservative Free 05537 Given 09/06/2015 Influenza Virus Vaccine, Quadrivalent, Split, [id number] Preservative Free [id number] Given 06/22/2015 Pneumonia Vaccine [id number] 63594 Given 09/01/2014 Pneumococcal Conjugate Vaccine 13 Valent For [id number] Intramuscular Use 45920 Given 09/01/2014 Flu Vaccine Split Virus Preservative Free For [id number] Indiv 3Yr Older Vital Signs Date Vital Result Comment 09/01/2019 11:49am Height 71 inches 5'11" Weight 325.00 lb Heart Rate 114 /min BP Systolic Sitting 145 mmHg BP Diastolic Sitting 95 mmHg O2 % BldC Oximetry 95 % BMI (Body Mass Index) 45.3 kg/m2 09/01/2019 9:25am Height 71 inches 5'11" Weight 310.00 lb Heart Rate 101 /min BP Systolic 144 mmHg BP Diastolic 90 mmHg Respiratory Rate 18 /min Body Temperature 98.9 F Pain Level 8 BMI (Body Mass Index) 43.2 kg/m2 Results Test Acquired Date Facility Test Result H/L Range Note Poc Urinalysis 08/24/2019 [facility] Poc Glucose, Negative Negative [address] [place] [address] [phone] Poc Bilirubin, Urine Negative Negative Poc Ketone, Urine Negative Negative Poc Specific [place], Urine 1.025 Normal 1.010-1.030 Poc Blood, Urine Negative Negative Poc pH, Urine 5.0 Normal 5-9 Poc Protein, Urine Negative Negative Poc Urobilinogen, Urine 0.2 Negative Poc Nitrite, Urine Negative Negative Poc Leukocytes, Urine Negative Negative Poc Color, Urine Yellow Poc Clarity, Urine Clear 1 Lipid Profile 08/11/2019 [facility] Triglycerides 187 mg/dL 2 (Trig/Chol/HDL) [address] [place] [address] [phone] Cholesterol 213 mg/dL 3 HDL Cholesterol 31.8 mg/dL 4 LDL Cholesterol 144 mg/dL 5 Comp Metabolic 08/11/2019 [facility] Sodium 141 mmol/L Normal 135-[address] [place] [address] [phone] Potassium 4.0 mmol/L Normal 3.5-5.0 Chloride 107 mmol/L Normal 101-111 Co2 Carbon Dioxide 26 mmol/L Normal 22-32 Anion Gap 8 mmol/L Normal 2-11 Glucose 113 mg/dL High 70-100 Blood Urea Nitrogen 16 mg/dL Normal 6-24 Creatinine 0.68 mg/dL Normal 0.51-0.95 BUN/Creatinine Ratio 23.5 High 8-20 Calcium 9.7 mg/dL Normal 8.6-10.3 Total Protein 6.9 g/dL Normal 6.4-8.9 Albumin 4.3 g/dL Normal 3.2-5.2 Globulin 2.6 g/dL Normal 2-4 Albumin/Globulin Ratio 1.7 Normal 1-3 Total Bilirubin 0.80 mg/dL Normal 0.2-1.0 Alkaline Phosphatase 80 U/L Normal 34-104 Alt 35 U/L Normal 7-52 Ast 27 U/L Normal 13-39 Egfr Non- 92.0 >60 Egfr 111.3 >60 6 Laboratory 07/07/2019 [facility] Rapid Strep Negative Negative 7 test finding [address] [place] [address] [phone] Laboratory 04/27/2019 [facility] Hemoglobin A1c 5.5 % Normal 4.0-5.[address] (Glyco HGB) [place] [address] [phone] Glucose 101 mg/dL High 70-100 Lipid Profile 04/20/2019 [facility] Triglycerides 270 mg/dL 9 (Trig/Chol/HDL) [address] [place] [address] [phone] Cholesterol 250 mg/dL 10 HDL Cholesterol 37.5 mg/dL 11 LDL Cholesterol 159 mg/dL 12 Basic Metabolic 04/20/2019 [facility] Sodium 141 mmol/L Normal 135-145 Panel [address] [place] [address] [phone] Potassium 4.1 mmol/L Normal 3.5-5.0 Chloride 111 mmol/L Normal 101-111 Co2 Carbon Dioxide 21 mmol/L Low 22-32 Anion Gap 9 mmol/L Normal 2-11 Glucose 109 mg/dL High 70-100 Blood Urea Nitrogen 12 mg/dL Normal 6-24 Creatinine 0.75 mg/dL Normal 0.51-0.95 BUN/Creatinine Ratio 16.0 Normal 8-20 Calcium 9.3 mg/dL Normal 8.6-10.3 Egfr Non- 82.5 >60 Egfr 99.8 >60 13 1 Child Center Assistant: [id number] Desirable: <150 Borderline High: 150-199 High: 200-499 Very High: >500 3 Desirable: <200 Borderline High: 200-239 High: >239 4 Low: <40 Desirable: 40-60 High: >60 5 Desirable: <100 Near Optimal: 100-129 Borderline High: 130-159 High: 160-189 Very High: >189 6 Because ethnic data is not always readily [...] 15-29 5 Kidney failure <15 (or dialysis) 7 Child Center Assistant: [id number] Therapeutic target for the treatment of diabetes mellitus patients is <7% HBA1C, and in selective patients <6.0%. Please refer to [place] [employer] diabetic care guidelines for further information. 9 Desirable: <150 Borderline High: 150-199 High: 200-499 Very High: >500 10 Desirable: <200 Borderline High: 200-239 High: >239 11 Low: <40 Desirable: 40-60 High: >60 12 Desirable: <100 Near Optimal: 100-129 Borderline High: 130-159 High: 160-189 Very High: >189 13 Because ethnic data is not always readily [...] Date Location Provider Dx Diagnosis Office Visit 08/11/2019 [facility] Internal Geovanna Alves, J01.90 Acute sinusitis, 8:30a Medicine - Jarrod Franks unspecified J45.41 Moderate persistent asthma with (acute) exacerbation L40.9 Psoriasis, unspecified Office Visit 04/27/2019 10:10a [facility] Internal Geovanna E78.2 Mixed hyperlipidemia Arlette Alves M.D. Ccmob I10 Essential (primary) hypertension R73.01 Impaired fasting glucose N92.1 Excessive and frequent menstruation with irregular cycle Assessments Date Code Description Provider 09/01/2019 E78.2 Mixed hyperlipidemia Geovanna Alves M.D. 09/01/2019 M76.71 Peroneal tendinitis, right leg Madan Castañeda M.D. 09/01/2019 S23.41xA Sprain of ribs, initial encounter Geovanna Alves M.D. 08/11/2019 J01.90 Acute sinusitis, unspecified Geovanna Alves [...] M.D. irregular cycle Plan of Treatment Future Appointment(s):10/21/2019 1:45 pm - Ethel Lawson MD at [facility] Ueaoeucjsuz88/19/2019 - Geovanna Alves M.D.E78.2 Mixed hyperlipidemiaNew Medication:Crestor 20 mg - once a dayS23.41xA Sprain of ribs, initial encounterNew Medication:Cyclobenzaprine HCL 10 mg - 1 by mouth twice times a day Functional Status Description No Information Available Mental Status Description No Information Available Referrals Refer to Dr Reason for Referral Status Appt Date Ethel Lawson MD Sent 10/21/2019 [facility], [address] [place] [id number] [phone]
--- OUTSIDE RECORDS SUMMARY | 2019-09-04 17:45 | XMS REPORT | Continuity of Care Document ---
:1970 External Reference #:[id number] Author Name Madan Castañeda M.D. (transmitted by agent of provider Denisse Ferraro) Address [address] [place] [address] [place] [address] Care Team Providers Name Role Phone Geovanna Alves MD - Internal Care Team Information Sports Team Manager [phone] Medicine Problems Active Problems Provider Date Mixed [...] a former Unknown smoker Smoking Status Reviewed: 11/19/19 Patient is a former smoker Exercise Type/Frequency Does not exercise Allergies, Adverse Reactions, Alerts Active Allergies Reaction Severity Comments Date Biaxin GI 01/06/2013 Bactrim GI 01/06/2013 Lipitor GI problems 02/02/2013 Lexapro GI problems 02/02/2013 Latex 08/31/2013 Statins 05/16/2018 Medications Active Medications SIG Qnty Indications Ordering Date Provider Flonase Allergy Relief spray 1 spray 16units J01.90 Geovanna 08/11/2019 50mcg/Act in each nostril Golden Alves Suspension daily Ventolin HFA inhale 2 puffs 18units Geovanna 05/07/2019 108(90Base) mcg/Act by mouth four Golden Alves Aerosol times a day as needed [place]-3 CF once a day 90caps Geovanna 04/27/2019 1000mg Capsules Golden Alves Ezetimibe 1 by mouth 90tabs E78.2 Geovanna 04/27/2019 10mg Tablets every day Golden Alves Airduo Respiclick 232/14 1 inh every [address] [facility] 07/18/2018 hrs ( dispense Golden Alves 232-14mcg/Act Aerosol generic ) Ranitidine HCL Take 1 Tablet 60tabs K21.9 Geovanna 06/17/2018 150mg Tablets By Mouth Twice oGlden Alves Daily Fenofibrate 1 by mouth 90tabs Geovanna 06/03/2018 160mg Tablets every day Golden Alves Hydrochlorothiazide Take 1 Capsule 90caps I10 Geovanna 04/30/2018 12.5mg By Mouth Once Golden Alves Capsules Daily Meclizine HCL 1 tablet every 30tabs H81.10 Viktoria Varn, 04/14/2018 25mg Tablets 8 hours as N.P. needed for vertigo Sirena Allergy 1 by mouth 90tabs J30.9 Geovanna 06/27/2017 180mg Tablets every day Golden Alves Celexa 1 by mouth 90tabs F32.9 Geovanna 08/31/2013 10mg Tablets every day Golden Alves Sumatriptan Succinate Take One Tablet 9tabs G43.809 [facility] 06/23/2013 50mg AT Onset Of Golden Alves Tablets Headache, May Repeat Again In 2 Hours Not To Exceed 2 Tablets Per Day Lisinopril Take 1 Tablet 90tabs I10 Geovanna 01/06/2013 5mg Tablets By Mouth Once Golden Alves Daily Mometasone Furoate as needed X 7 30gm Geovanna 0.1% Cream days Golden Alves Doxycycline Monohydrate Take 1 Capsule Unknown 100mg By Mouth Twice Capsules Daily Cyclobenzaprine HCL take 1 tab by Unknown 10mg Tablets mouth 2-3 times a day as needed History Medications Prednisone 2 tab by mouth QS J45.41 Geovannaana rosa Alves, 08/11/2019 - 20mg every day x3 M.D. 08/20/2019 Tablets days then 1 tab daily for 3 days, then 1/2 tab daily for 3 days Proair HFA take 1 to 2 8.5units Geovannaana rosa Alves, 04/15/2019 - puffs 4-6 times M.D. 05/07/2019 108(90Base) mcg/Act a day as needed Aerosol for cough Medications Administered in Office Medication SIG Qnty Indications Ordering Provider Date Depomedrol 40MG Denisse Us M.D. 01/30/2016 Injection Depomedrol 80MG Madan Castañeda M.D. 12/04/2012 Injection Depomedrol 80MG Madan Castañeda M.D. 12/04/2012 Injection Immunizations CPT Code Status Date Vaccine Lot # [id number] Given 06/27/2017 Tdap - Tetanus/Diptheria/Acellular Pertussis [id number] 82345 Given 06/27/2017 Influenza Virus Vaccine, Quadrivalent, Split, [id number] Preservative Free 51758 Given 09/06/2015 Influenza Virus Vaccine, Quadrivalent, Split, [id number] Preservative Free 79940 Given 06/22/2015 Pneumonia Vaccine [id number] 24658 Given 09/01/2014 Pneumococcal Conjugate Vaccine 13 Valent For [id number] Intramuscular Use 10435 Given 09/01/2014 Flu Vaccine Split Virus Preservative Free For [id number] Indiv 3Yr Older Vital Signs Date Vital Result Comment 09/01/2019 9:25am Height 71 inches 5'11" Weight 310.00 lb Heart Rate 101 /min BP Systolic 144 mmHg BP Diastolic 90 mmHg Respiratory Rate 18 /min Body Temperature 98.9 F Pain Level 8 BMI (Body Mass Index) 43.2 kg/m2 08/11/2019 8:15am Height 71. inches 5'11" Weight 310.00 lb Heart Rate 89 /min BP Systolic Sitting 133 mmHg BP Diastolic Sitting 90 mmHg Body Temperature 97.9 F O2 % BldC Oximetry 97 % BMI (Body Mass Index) 43.2 kg/m2 Results Test Acquired Date Facility Test Result H/L Range Note Poc Urinalysis 08/24/2019 [facility] Poc Glucose, Negative Negative [address] [place] [address] [phone] Poc Bilirubin, Urine Negative Negative Poc Ketone, Urine Negative Negative Poc Specific [place], Urine 1.025 Normal 1.010-1.030 Poc Blood, Urine Negative Negative Poc pH, Urine 5.0 Normal 5-9 Poc Protein, Urine Negative Negative Poc Urobilinogen, Urine 0.2 Negative Poc Nitrite, Urine Negative Negative Poc Leukocytes, Urine Negative Negative Poc Color, Urine Yellow Poc Clarity, Urine Clear 1 Lipid Profile 08/11/2019 [facility] Triglycerides 187 mg/dL 2 (Trig/Chol/HDL) [address] [place] [address] [phone] Cholesterol 213 mg/dL 3 HDL Cholesterol 31.8 mg/dL 4 LDL Cholesterol 144 mg/dL 5 Comp Metabolic 08/11/2019 [facility] Sodium 141 mmol/L Normal 135-[address] [place] [address] [phone] Potassium 4.0 mmol/L Normal 3.5-5.0 Chloride 107 [...] >60 Egfr 111.3 >60 6 Laboratory 07/07/2019 [facility] Rapid Strep Negative Negative [address] [place] [address] [phone] Laboratory 04/27/2019 [facility] Hemoglobin A1c 5.5 % Normal 4.0-5.[address] (Glyco HGB) [place] [address] [phone] Glucose 101 mg/dL High 70-100 Lipid Profile 04/20/2019 [facility] Triglycerides 270 mg/dL 9 (Trig/Chol/HDL) [address] [place] [address] [phone] Cholesterol 250 mg/dL 10 HDL Cholesterol 37.5 mg/dL 11 LDL Cholesterol 159 mg/dL 12 Basic Metabolic 04/20/2019 [facility] Sodium 141 mmol/L Normal 135-[address] [place] [address] [phone] Potassium 4.1 mmol/L Normal 3.5-5.0 Chloride 111 mmol/L Normal 101-111 Co2 Carbon Dioxide 21 mmol/L Low 22-32 Anion Gap 9 mmol/L Normal 2-11 Glucose 109 mg/dL High 70-100 Blood Urea Nitrogen 12 mg/dL Normal 6-24 Creatinine 0.75 mg/dL Normal 0.51-0.95 BUN/Creatinine Ratio 16.0 Normal 8-20 Calcium 9.3 mg/dL Normal 8.6-10.3 Egfr Non- 82.5 >60 Egfr 99.8 >60 13 1 [employer] Operator: [id number] Desirable: <150 Borderline High: 150-199 High: [...] 5 Kidney failure <15 (or dialysis) 7 [employer] Operator: [id number] Therapeutic target for the treatment of diabetes mellitus patients is <7% HBA1C, and in selective patients <6.0%. Please refer to [place] [employer] diabetic care guidelines for further [...] Location Provider Dx Diagnosis Office Visit 08/11/2019 Eduin Alves, J01.90 Acute sinusitis, 8:30a Medicine - Jarrod Franks unspecified J45.41 Moderate persistent asthma with (acute) exacerbation L40.9 Psoriasis, unspecified Office Visit 04/27/2019 10:10a [facility] Internal Geovanna E78.2 Mixed hyperlipidemia Arlette Alves M.D. Ccmob I10 Essential (primary) hypertension R73.01 Impaired fasting glucose N92.1 Excessive and frequent menstruation with irregular cycle Assessments Date Code Description Provider 09/01/2019 M76.71 Peroneal tendinitis, right leg Madan Castañeda M.D. 08/11/2019 J01.90 Acute sinusitis, unspecified Geovanna [...] 1:45 pm - Ethel Lawson MD at [facility] [id number]/19/2019 - Madan Castañeda M.D.M76.71 Peroneal tendinitis, right legNew Xrays:MRI Ankle Right W/O, Ordered: 09/01/19Follow up:after testing is completed Functional Status Description No Information Available Mental Status Description No Information Available Referrals Refer to Dr Reason for Referral Status Appt Date Ethel Lawson MD Sent 10/21/[address] [place] [address], [facility] [place] [address] [phone]
[2019-09-04 18:15] VITALS: BP 169/86
[2019-09-04] MEDS ORDERED: Fluconazole 150 MG TAB PO ONE (18:41)
--- NOTE | 2019-09-04 18:41 | UC ---
Throat Pain/Nasal Young HPI - HPI Summary HPI Summary: Ms. oTm presents to me with a history that she has had a sore throat that waxes and wanes for 2 months. She has been seen here several times and at her PCPs as recently as last Saturday with a negative strep test. She has not been on antibiotics during this time period. She is particularly concerned as she is going to be involved in taking care of her [id number] who is coming home from the hospital with trach. - History of Current Complaint Chief Complaint: UCRespiratory Stated Complaint: SORE THROAT Time Seen by Provider: 09/04/19 18:24 Hx Obtained From: Patient Hx Last Menstrual Period: last month Onset/Duration: Gradual Onset Severity: Moderate Pain Intensity: 10 Associated Signs & Symptoms: Positive: Negative - Allergies/Home Medications Allergies/Adverse Reactions: Allergies Allergy/AdvReac Type Severity Reaction Status Date / Time Adhesive Tape Allergy RED Verified 09/04/19 18:15 latex Allergy Rash Verified 09/04/19 18:15 atorvastatin AdvReac GI Upset Verified 09/04/19 18:15 clarithromycin [From Biaxin] AdvReac GI Upset Verified 09/04/19 18:15 escitalopram [From Lexapro] AdvReac GI Upset Verified 09/04/19 18:15 sulfamethoxazole AdvReac GI Upset Verified 09/04/19 18:15 [From Bactrim] trimethoprim [From Bactrim] AdvReac GI Upset Verified 09/04/19 18:15 HAYFEVER/ENVIRONMENTAL Allergy SNEEZING, Uncoded 09/04/19 18:15 RUNNY NOSE PMH/Surg Hx/FS Hx/Imm Hx Respiratory History: Asthma - Surgical History Surgical History: Yes Surgery Procedure, Year, and Place: 1993 TUBAL LIGATION;GALLBLADDER 02/2013; [facility] right ankle Jun 2013. L wrist 2015 - Family History Known Family History: Positive: Cardiac Disease, Hypertension, Diabetes, Other - HLD, depression - Social History Alcohol Use: Rare Substance Use Type: None Smoking Status (MU): Former Smoker Type: Cigarettes Amount Used/How Often: OFF AND ON SINCE AGE 9 Length of Time of Smoking/Using Tobacco: 33 years Have You Smoked in the Last Year: Yes When Did the Patient Quit Smoking/Using Tobacco: 1 yr ago Household Exposure Type: Cigarettes Review of Systems All Other Systems Reviewed And Are Negative: Yes Constitutional: Positive: Negative Skin: Positive: Negative ENT: Positive: Sore Throat Respiratory: Positive: Negative Physical Exam - Summary Physical Exam Summary: She is nontoxic in appearance with stable vital signs. Triage Information Reviewed: Yes Appearance: Well-Appearing Vital Signs: Initial Vital Signs Temp 98.2 F 09/04/19 18:06 Pulse 108 09/04/19 18:06 Resp 18 09/04/19 18:06 BP 169/86 09/04/19 18:06 Pulse Ox 97 09/04/19 18:06 ENT: Positive: Pharyngeal erythema Neck: Positive: No Lymphadenopathy Respiratory: Positive: Lungs clear Cardiovascular: Positive: RRR Throat Pain/Nasal Course/Dx - Course Course Of Treatment: If she has indeed had a sore throat for 2 months, it seems as though a viral infection should've resolved and a ba cterial infection should have gotten worse. She does use a steroid inhaler and the possibility of a candidal infection exists. I'm going to give her Diflucan to see if this resolves the issue. - Differential Dx/Diagnosis Provider Diagnosis: Pharyngitis Discharge ED - Sign-Out/Discharge Documenting (check all that apply): Patient Departure All imaging exams completed and their final reports reviewed: No Studies - Discharge Plan Condition: Stable Disposition: HOME Patient Education Materials: Pharyngitis (ED) Referrals: Geovanna Alves MD [Primary Care Provider] - - Billing Disposition and Condition Condition: STABLE Disposition: Home
== END 2019-09-04 19:04 | disposition home or self-care (01) ==
LOC: UCEAST 17:38
DX: J02.9 Acute pharyngitis, unspecified (principal); J45.909 Unspecified asthma, uncomplicated; Z91.09 Other allergy status, other than to drugs and biological substances; Z91.040 Latex allergy status; Z87.891 Personal history of nicotine dependence; Z88.8 Allergy status to other drugs, medicaments and biological substances; Z88.1 Allergy status to other antibiotic agents; Z88.2 Allergy status to sulfonamides
CPT/HCPCS: 99212; A9270-GY; G0463